=== PATIENT | female | born 1965 | race African-American/Black ===

== ENCOUNTER 2024-12-18 07:16 | Emergency (ER) | payer OTHER ==
[~2024-12-18] VITALS: Ht 160 cm; Wt 154.5 kg
[2024-12-18] MEDS ORDERED: PIOG15TA6 PO (07:28)
[2024-12-18] MEDS ORDERED: CHL25 PO (07:28)
[2024-12-18] MEDS ORDERED: LOSA-382 PO (07:28)
[2024-12-18] MEDS ORDERED: METF-1211 PO (07:28)
[2024-12-18 07:40] VITALS: TEMP 98.3
[2024-12-18 07:45] LABS: GLUCOMETER DEV NAME(LOC) ERT.6; GLUCOSE,POINT OF CARE 202 MG/DL (70-110)
[2024-12-18 08:29] LABS: BASOPHILS % (AUTO) 0.7 % (0.0-2.0); EOSINOPHILS % (AUTO) 0.9 % (1.0-6.0); HEMOGLOBIN 13.1 g/dL (12.0-16.0); LYMPHOCYTES # (AUTO) 2.8 K/uL (1.0-4.8); LYMPHOCYTES % (AUTO) 27.7 % (22.0-44.0); MEAN CORPUSCULAR VOLUME 81 fL (80-100); MONOCYTES # (AUTO) 0.7 K/uL (0.1-1.0); MONOCYTES % (AUTO) 7.3 % (2.0-9.0); NEUTROPHILS # (AUTO) 6.5 K/uL (1.8-7.7); NEUTROPHILS % (AUTO) 63.4 % (40.0-70.0); PLATELET COUNT (AUTO) 169 K/uL (150-450); RED BLOOD CELL COUNT(AUTO) 5.05 MIL/uL (4.00-5.20); RED CELL DISTRIBUTION WIDTH 14.9 % (11.5-14.5); WHITE BLOOD COUNT (AUTO) 10.2 K/uL (4.5-11.0)
[2024-12-18 08:50] LABS: CALCIUM, TOTAL 8.5 mg/dL (8.8-10.5); CREATININE 1.2 mg/dL (0.60-1.30); POTASSIUM 3.7 mmol/L (3.5-5.1)
[2024-12-18 11:07] VITALS: BP 151/94; PULSE 95; RESP 16; O2SAT 99
[2024-12-18] MEDS: LORazepam 1 MG TABLET PO ONE (11:07)
[2024-12-18] MEDS: ONDANSETRON 4 MG TABLET PO ONE (11:07)
[2024-12-18] MEDS ORDERED: HYDR-4527 PO (12:09)
== END 2024-12-18 12:40 | disposition home or self-care (01) ==
LOC: EMS 07:16
DX: R53.1 Weakness (principal); R11.0 Nausea; E11.9 Type 2 diabetes mellitus without complications; I10 Essential (primary) hypertension; Z79.84 Long term (current) use of oral hypoglycemic drugs; Z79.899 Other long term (current) drug therapy
CPT/HCPCS: 99283; 80048; 82962; 85025; 36415; Q0162